=== PATIENT | male | born 1990 | race Caucasian/White ===

== ENCOUNTER → 2019-10-19 14:54 | Outpatient (CLI) | payer OTHER, SELFPAY ==
[2019-10-21 14:40] LABS: Covid-19 Nasal PCR Sendout Lex Not Detected
== END ==
PROVIDERS: PCP Family Medicine; Visit Provider Family Medicine
DX: Z20.828 Contact with and (suspected) exposure to other viral communicable diseases (principal)
CPT/HCPCS: U0004